=== PATIENT | male | born 1955 | race Caucasian/White ===

== ENCOUNTER → 2024-08-07 | Outpatient (CLI) | payer BC ==
--- NOTE | 2024-08-08 07:57 | US ---
EXAMINATION TYPE: US groin RT DATE OF EXAM: 08/07/2024 COMPARISON: NONE CLINICAL INDICATION: Male, 68 years old with history of R10.31 RIGHT LOWER QUAD PAIN; Right groin sami t radiates laterally. Patient states he fell few months ago. TECHNIQUE: Multiple sonographic images taken. FINDINGS AND IMPRESSION: Anesthesia Assistant notes: Multiple images taken of area of concern, scans of the right groin. No masses or fluid collections seen. Valsalva performed. No sonographic evidence of hernia identified at time of scan. [facility], Workstation: [id number], 08/08/2024 7:54 AM
== END | disposition home or self-care (01) ==
LOC: RADUSWWP 15:47
PROVIDERS: ATTEND Family Medicine
DX: R10.31 Right lower quadrant pain (principal)